=== PATIENT | female | born 1985 | race Caucasian/White ===

== ENCOUNTER → 2019-01-10 09:17 | Outpatient (CLI) | payer OTHER, SELFPAY ==
--- NOTE | 2019-01-10 09:24 | US_ITS ---
STUDY: ULTRASOUND BREAST - RIGHT REASON FOR EXAM: Female, 33 years old. Palpable lump in the right breast. TECHNIQUE: Axial and longitudinal images of the RIGHT breast were performed with a high resolution ultrasound transducer. COMPARISON: Comparison is made with prior mammogram done earlier today. FINDINGS: RIGHT Breast: 2 adjacent cysts are seen at the 10:00 position in the breast at 7 cm from nipple. The larger measures 8 mm x 9 mm x 5 mm. IMPRESSION: 2 small cysts at the 10:00 position in the breast at 7 cm from the nipple. ASSESSMENT CATEGORY: BIRADS Category 2: Benign. A letter regarding these results will be sent to the patient by the facility within 30 days. Electronically Signed: Francesco Stuart, at 12:49 EDT , Service support , STUDY: ULTRASOUND BREAST - LEFT REASON FOR EXAM: Female, 33 years old. Abnormal screening mammogram. TECHNIQUE: Axial and longitudinal images of the LEFT breast were performed with a high resolution ultrasound transducer. COMPARISON: Comparison is made with prior mammogram done earlier in the day. FINDINGS: LEFT Breast: There are 3 subcentimeters cysts at the 2:00 position of the breast at 3 to 4 cm from the nipple. The largest measures 9 mm x 9 mm x 4 mm. US/Breast Limited Unilateral IMPRESSION: 3 small cysts are seen at the 2:00 position of the breast at 3 to 4 cm from the nipple. ASSESSMENT CATEGORY: BIRADS Category 2: Benign. A letter regarding these results will be sent to the patient by the facility within 30 days. Electronically Signed: Francesco Stuart, at 12:50 EDT , Service support ,
--- NOTE | 2019-01-10 09:24 | BI_ITS ---
MAMMOGRAPHY - BILATERAL DIAGNOSTIC REASON FOR EXAM: Female, 33 years old. Right breast tenderness and lateral fullness. PERTINENT HISTORY: Non-contributory. TECHNIQUE: Digital bilateral breast teresa (3D mammographic acquisition) in the CC and MLO projections. 2-D mediolateral oblique (MLO) and craniocaudad (CC) views of both breasts were obtained. CAD: Full Field Digital Mammography with Computer Added Detection was performed. COMPARISON: None. Baseline examination. FINDINGS: Breast Composition: The breasts are extremely dense, which lowers the sensitivity of mammography. There is a 7.5 mm x 8.8 mm well-defined nodule in the upper lateral portion of the left breast. Correlation with ultrasound the left breast is recommended. No abnormality seen in the right breast. With the patient's history of breast tenderness, ultrasound is recommended as well. No other significant abnormalities are identified. BI/DIAG MAMM W/CAD, BILAT IMPRESSION: Correlation with ultrasound of both breasts is recommended for further evaluation. ASSESSMENT CATEGORY: BIRADS Category 0: Incomplete. Need additional imaging evaluation. A letter regarding these results will be sent to the patient by the facility within 30 days. Approximately 10% of breast cancers are not detected by mammography. A normal mammogram should not delay biopsy of a clinically suspicious abnormality. Electronically Signed: Francesco Stuart, at 11:14 EDT , Service support ,
== END ==
PROVIDERS: Referring Provider Obstetrics & Gynecology; Visit Provider Obstetrics & Gynecology
DX: N63.11 Unspecified lump in the right breast, upper outer quadrant (principal)
CPT/HCPCS: 76642; 77062; 77066; G0279

== ENCOUNTER 2021-07-10 09:15 | Outpatient (CLI) | payer BC, SELFPAY ==
[2021-07-10 10:24] LABS: Hematocrit 36.6 % (37-47); Hemoglobin 12.2 g/dL (12.0-15.0); Mean Corp Hgb Conc 33.3 g/dL (32-36); Mean Corpuscular Hgb 29.3 pg (27.0-32.0); Mean Corpuscular Volume 87.8 fL (81-99); Mean Platelet Vol. 9.9 fl (6.2-12.0); Platelet Count 309 K/mm3 (150-450); RBC Distribution Width CV 13.4 % (11.6-14.6); RBC Distribution Width SD 43.2 fl (35.1-43.9); Red Blood Count 4.17 M/mm3 (4.2-5.4); White Blood Count 7.1 K/mm3 (4.4-11.0)
[2021-07-10 11:47] LABS: Anion Gap 6 (5-15); BUN 12 mg/dL (7-18); BUN/Creat Ratio 17.1 RATIO (10-20); Calcium,Total 8.2 mg/dL (8.5-10.1); Chloride 109 mmol/L (98-107); Cholesterol 109 mg/dL (200); EST Glomerular Filtration Rate 99 mL/min (>60); Est Glom Filt Rate - Afr Amer 120 mL/min (>60); Estradiol 153.2 pg/mL; Ferritin 4 ng/mL (8-252); Follicle Stimulating Hormone 2.8 mIU/mL; Free T3 2.3 pg/mL (2.18-3.98); Glucose 82 mg/dL (74-106); High Density Lipoprotein 54 mg/dL; Iron 74 ug/dL (50-170); Luteinizing Hormone 4.3 mIU/mL; Potassium 3.8 mmol/L (3.5-5.1); Sodium Level 140 mmol/L (136-145); Thyroid Stim Hormone (TSH) 1.45 uIU/mL (0.358-3.74); Triglycerides 44 mg/dL; Very Low Density Lipoprotein 9 mg/dL (5-40)
[2021-07-12 08:38] LABS: Vitamin B12 382 pg/mL (211-911); Vitamin D,25 Hydroxy 24.8 ng/mL
== END 2021-07-10 23:59 | disposition short-term general hospital (02) ==
LOC: LAB 09:18
PROVIDERS: PCP Family Medicine; Referring Provider Family Medicine; Visit Provider Family Medicine
DX: L65.9 Nonscarring hair loss, unspecified (principal); Z13.1 Encounter for screening for diabetes mellitus; R63.5 Abnormal weight gain; R68.89 Other general symptoms and signs
CPT/HCPCS: 80048; 80061; 82306; 82533; 82607; 82627; 82670; 82728; 83001; 83002; 83540; 84439; 84443; 84481; 85027; 82626

== ENCOUNTER 2024-04-28 18:04 | Emergency (ER) | payer BC, SELFPAY ==
[2024-04-28 18:05] VITALS: BP 137/83; PULSE 93; RESP 18; TEMP 35.8; O2SAT 99
--- NOTE | 2024-04-28 18:21 | EDS_ITS ---
HPI History of Present Illness HPI Narrative: Patient presents with right foot and ankle pain that began today. Patient states she stepped in a hole and twisted her foot. Patient states she felt a snap. Patient denies falling to the ground. Patient states her pain is sharp and throbbing. Patient states it is worse with movement and weightbearing. Patient states she took some ibuprofen which helped somewhat. Patient denies any paresthesias or weakness. Patient denies any head injury or loss of conscio usness. Chief Complaint: Lower Extremity Injury Informant: patient Occured/Mechanism Comment: Stepped in a hole and twisted her foot Onset/Context/Timing Onset: Today Context: Sudden Onset Timing: Continuous Quality of Pain: Sharp and Throbbing Location: Right foot Worsened by: Movement Relieved by: Ibuprofen Associated Symptoms Associated Symptoms: Negative for Parasthesia, Weakness or Loss of Funtion PFSH PFS Medical History (Updated 04/28/24 @ 20:[address] Nitin Charles DO) Cellulitis of left forearm Allergy/AdvReac Type Severity Reaction Status Date / Time No Known Allergies Allergy Verified 04/28/24 18:05 Surgical History (Updated 04/28/24 @ 18:[address] Nitin Charles DO) Hx of tubal ligation Social History (Updated 04/28/24 @ 18:[address] Nitin Charles DO) Smoking Status: Former smoker ROS ROS ED Constitutional Constitutional ED: Denies chills or fever(s) Eyes Eyes: Denies blurry vision or change in vision ENT ENT ED: Denies rhinorrhea or sore throat Cardiovascular Cardiovascular: Denies chest pain or palpitations Respiratory/Chest Respiratory/Chest: Denies cough or dyspnea Gastrointestinal Gastrointestinal: Denies nausea or vomiting Genitourinary Genitourinary ED: Denies dysuria or hematuria Musculoskeletal Musculoskeletal: Denies back pain or neck pain Integumentary Denies abscess or rash Neurologic Neurologic: Denies headache(s) or weakness Allergic/Immunologic Allergic/Immunologic ED: Denies mouth swelling or urticaria EXAM Physical Exam Const Vital Signs: 04/28/24 18:05 Temperature 96.4 F L Temperature Source Temporal Pulse Rate 93 Respiratory Rate 18 Blood Pressure 137/83 H Blood Pressure Mean 101 Pulse Ox 99 Positive well nourished and well developed General Appearance ED: well developed and NAD HEENT Reports moist mucous membranes normocephalic and atraumatic Neck full ROM and supple Extremity Extremity Narrative: There is tenderness to palpation over the right midfoot and forefoot. There is slight edema. There is no ecchymosis. There is no deformity noted. There is mild tenderness over the calcaneus as well. There is no tenderness over the proximal fibula. Range of motion was limited in all motions of the right foot and ankle secondary to pain. Pedal pulses are equal bilateral. Sensation was intact to light touch bilaterally in lower extremities. Capillary refill was less than 2 seconds in all digits. Strength is 5/5 bilaterally in the lower extremities. Neuro oriented x3, CN's II-XII intact bilaterally, moves all extremities and no sensory deficits noted Sensorium / Orientation: alert Motor Exam: strength 5/5 throughout MDM MDM MDM Narrative Medical decision making narrative: Differential diagnosis includes fracture, dislocation, and sprain. X-rays of the right foot will be obtained to assess for fracture or dislocation. Radiography Diagnostic Testing: Clinical Impression(s) from Imaging Studies Foot X-Ray 04/28/24 18:26 IMPRESSION: No acute bony injury. Electronically Signed: Sivakumar Rossi DO at 20:32 EDT Reading Location ID and State: [facility] / [place] Tel [phone], Service support , X-rays of the right foot were obtained. There are 3 views. On my independent interpretation, there is no acute fracture or dislocation noted. Radiologist also interpreted the x-rays and agrees. Treatment and Re-Evaluation Narrative: Patient was advised of her findings. Patient was given a walking boot. Patient was instructed to ice and elevate the right foot. Patient was instructed to follow-up with her primary care physician in 5 to 7 days. Patient understood and was agreeable with the plan. All questions were answered. Discharge Plan Triage Chief Complaint: Lower Extremity Injury ED Provider: Nitin Charles Dx/Rx/DC Orders Clinical Impression: Right foot sprain Instructions: ED Foot Sprain Primary Care Provider: Care Physician,No Primary Referrals: Leno Peres MD [Med Staff - Lead Esthetician] - 3-5 Days Print Language: Fijian Disposition Disposition: Home, Self Care
--- OUTSIDE RECORDS SUMMARY | 2024-04-28 18:23 | XMS RPT_ITS | CCD ---
Author Organization [facility] Inform ion Partnership [facility] Care Team Providers Care Legal Arbitrator Name Role Phone ALTHEA SAL (PROCESS SUPERVISOR) Unavailable Unavailabl e Encounters Encounter Date Encounter Type Care Provider Facility Start: 12-14-2016 End: 12-15-2016 Ambulatory ALTHEA HENDRICKS) JONELLE [facility] brenda Summary Purpose Family History No Family History Records Found Advance Directives No Advanced Directives Records Found Additional Source Comments INFORMATION SOURCE (unrecogn ized section and content) DATE CREATED AUTHOR 12/27/2017 [facility] FOR RECORDS PERTAINING TO PATIENTS WHO ARE OR HAVE BEEN ENROLLED IN A CHEMICAL DEPENDENCY/SUBSTANCEABUSE PROGRAM, SOME INFORMATION MAY BE OMITTED. This clinical summary was aggregated from multiple sources. Caution should be exercised in using it in the provision of clinical care. This summary normalizes information from multiple sources, and as a consequence, information in this document may materially change the coding, format and clinical context of patient data. In addition, data may be omitted in some cases. CLINICAL DECISIONS SHOULD BE BASED ON THE PRIMARY CLINICAL RECORDS. [facility] [email or web address] [facility]. provides no warranty or guarantee of the accuracy or completeness of information in this document.
--- NOTE | 2024-04-28 18:26 | RAD_ITS ---
INDICATION: Injury/Pain EXAMINATION/TECHNIQUE: X-RAY - RIGHT XR Foot Min 3 Views 3 VIEWS COMPARISON: FINDINGS: SOFT TISSUES: No soft tissue swelling or gas. No radiopaque foreign body. BONES/JOINTS: No acute fracture or subluxation.. Plantar calcaneal spur. Normal alignment. Preservation of the joint space.. No sclerotic or destructive changes observed. RAD/Foot min 3 Views IMPRESSION: No acute bony injury. Electronically Signed: Sivakumar Rossi DO at 20:32 EDT ,
[2024-04-28 20:56] VITALS: BP 124/85; PULSE 85; RESP 16; TEMP 36.8; O2SAT 99
== END 2024-04-28 20:57 | disposition home or self-care (01) ==
PROVIDERS: Emergency Provider Emergency Medicine; Visit Provider Emergency Medicine
DX: S93.601A Unspecified sprain of right foot, initial encounter (principal); Z87.891 Personal history of nicotine dependence; Z98.51 Tubal ligation status; X50.1XXA Overexertion from prolonged static or awkward postures, initial encounter; Y92.89 Other specified places as the place of occurrence of the external cause
CPT/HCPCS: 73630; 99283

== ENCOUNTER → 2024-06-18 | Outpatient (CLI) | payer BC, SELFPAY ==
[2024-06-18 07:56] LABS: Absolute Lymphocyte Count 1.34 X10^3/uL (0.83-4.51); Basophil# 0.04 X10^3/uL; Basophil% 0.6 % (0-1); Eosinophil# 0.13 X10^3/uL; Eosinophils% 1.8 % (0-5); Hematocrit 35.9 % (37-47); Hemoglobin 12.1 g/dL (12.0-15.0); Lymphocyte # 1.34 X10^3/ul (0.83-4.51); Lymphocyte % 18.9 % (19-41); Mean Corp Hgb Conc 33.7 g/dL (32-36); Mean Corpuscular Volume 86.1 fL (81-99); Mean Platelet Vol. 9.7 fl (6.2-12.0); Monocyte# 0.59 X10^3/uL; Monocyte% 8.3 % (0-10); NRBC Flagged by Analyzer 0 % (0-5); Neutrophil # 4.97 X10^3/uL (2.7-7.7); Platelet Count 302 K/mm3 (150-450); RBC Distribution Width CV 13.2 % (11.6-14.6); RBC Distribution Width SD 40.9 fl (35.1-43.9); Red Blood Count 4.17 M/mm3 (4.2-5.4); White Blood Count 7.1 K/mm3 (4.4-11.0)
[2024-06-18 08:39] LABS: ALB/GLOB Ratio 0.9 RATIO (0.9-2.4); AST(SGOT) 24 U/L (15-37); Alanine Aminotransfer ALT/SGPT 48 U/L (13-56); Albumin, Serum 3.4 g/dL (3.2-5.0); Alkaline Phosphatase 57 U/L (45-117); Anion Gap 5 (5-15); BUN 8 mg/dL (7-18); BUN/Creat Ratio 10.6 RATIO (10-20); Calcium,Total 8.4 mg/dL (8.5-10.1); Chloride 108 mmol/L (98-107); Cholesterol 108 mg/dL (200); Creatinine, Serum 0.75 mg/dL (0.55-1.02); EST Glomerular Filtration Rate 90 mL/min (>60); Est Glom Filt Rate - Afr Amer 109 mL/min (>60); Estradiol 140.1 pg/mL; Ferritin 5 ng/mL (8-252); Globulin 3.6 g/dL (2.2-4.2); Glucose 91 mg/dL (74-106); High Density Lipoprotein 48 mg/dL; Iron 85 ug/dL (50-170); LDH 176 U/L (84-246); Potassium 3.9 mmol/L (3.5-5.1); Sodium Level 138 mmol/L (136-145); T4 Free Direct 0.83 ng/dL (0.76-1.46); Triglycerides 88 mg/dL; Very Low Density Lipoprotein 18 mg/dL (5-40)
[2024-06-18 09:17] LABS: Vitamin B12 487 pg/mL (211-911); Vitamin D,25 Hydroxy 18.7 ng/mL
[2024-06-19 04:07] LABS: PROGESTERONE 0.1 ng/mL (.)
== END | disposition home or self-care (01) ==
LOC: LAB 07:26
PROVIDERS: PCP Nurse Practitioner Family; Referring Provider Nurse Practitioner Family; Visit Provider Nurse Practitioner Family
DX: Z00.01 Encounter for general adult medical examination with abnormal findings (principal); R53.83 Other fatigue; L65.9 Nonscarring hair loss, unspecified; R68.82 Decreased libido
CPT/HCPCS: 36415; 80053; 80061; 82306; 82607; 82670; 82728; 83540; 83615; 84144; 84439; 84443; 85025

== ENCOUNTER → 2024-07-08 | Outpatient (CLI) | payer BC, SELFPAY ==
[2024-07-11 10:08] LABS: Age Gdln ACOG Testing 30-65 (.); HPV APTIMA, High Risk Negative (Negative)
[2024-07-12 09:51] LABS: HPV Reflexed? YES, CHARGE PATIENT
== END | disposition home or self-care (01) ==
LOC: LABSPEC 08:39
PROVIDERS: PCP Nurse Practitioner Family; Referring Provider Nurse Practitioner Family; Visit Provider Nurse Practitioner Family
DX: Z12.4 Encounter for screening for malignant neoplasm of cervix (principal)
CPT/HCPCS: 87624; 88175; G0145